=== PATIENT | female | born 1950 | race Caucasian/White ===

== ENCOUNTER 2021-01-18 12:28 | Emergency (ER) | payer OTHER ==
[~2021-01-18] VITALS: Ht 167.6 cm; Wt 73.5 kg
[2021-01-18] MEDS ORDERED: ATORVASTATIN CA10 MG PO (12:45)
[2021-01-18] MEDS ORDERED: ALLERGY RELIEF10 M3 PO (16:26)
[2021-01-18] MEDS ORDERED: MEDROLPACK PO (16:26)
[2021-01-18] MEDS ORDERED: TRIAMCINOLONE A15 G4 TOP (16:26)
== END 2021-01-18 16:36 | disposition home or self-care (01) ==
LOC: ER 12:28
DX: L50.0 Allergic urticaria (principal)